=== PATIENT | male | born 1975 | race Caucasian/White ===

== ENCOUNTER 2024-10-01 03:49 | Inpatient (IN) | payer BC, OTHER ==
[~2024-10-01] VITALS: Ht 177.8 cm; Wt 92.0 kg
--- NOTE | 2024-10-01 03:53 | ECG ---
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
[2024-10-01] MEDS: ASPirin 81 mg TAB PO ONE (04:10)
--- NOTE | 2024-10-01 04:11 | ED.PDOC ---
History of Present Illness HPI Comments 49 y/o M, with a Hx of CAD, 4xCABG, cholecystectomy, DM, and HTN, presents with c/o non-radiating, left-sided chest pain, shortness of breath, non-productive cough, nausea, and vomiting since 2330, yesterday night. Patient endorses on sudden and unprovoked onset of symptoms that awoke him from his sleep, last night. Patient states on pain being burning and tight in quality. Patient states on no additional relevant or pertinent Hx along with recent stress, injuries, sick contact, travel, spoiled food, or substance use/exposure. Patient denies having any palpitations, hematemesis, fever, chills, or other associated symptoms or modifiers at this time. Chief Complaint: Chest Pain Time Seen by MD: 04:00 Reviewed Notes: Nurses Notes, Medications, Allergies Allergies: Coded Allergies: NO KNOWN ALLERGIES (Unverified , 10/01/24) Information Source: Patient Mode of Arrival: Ambulatory Severity: Moderate Timing: Hours Duration: Since onset Prehospital treatment: None Past Medical History PAST MEDICAL HISTORY: CAD, DM, HTN Surgical History: CABG (4x), Cholecystectomy Family History Family History: Reviewed,noncontributory to illness, No family hx of DM, No family hx of Heart adriana, No family hx of HTN, No family hx ofKidney adriana, No family hx of Liver adriana, No family hx of Lung adriana, Family hx of Cancer Social History Smoker: Non-Smoker Alcohol: Denies ETOH Use Drugs: Denies Drug Use Lives In: Home Constitutional: denies: chills, diaphoresis, fatigue, fever, malaise, sweats, weakness, others EENTM: denies: blurred vision, double vision, ear bleeding, ear discharge, ear drainage, ear pain, ear ringing, eye pain, eye redness, hearing loss, mouth pain, mouth swelling, nasal discharge, nose bleeding, nose congestion, nose pain, photophobia, tearing, throat pain, throat swelling, voice changes, others Respiratory: reports: cough, shortness of breath; denies: hemoptysis, orthopnea, SOB at rest, SOB with excertion, stridor, wheezing, others Cardiovascular: reports: chest pain; denies: dizzy spells, diaphoresis, Dyspnea on exertion, edema, irregular heart beat, left arm pain, lightheadedness, palpitations, PND, syncope, others Gastrointestinal: reports: nausea, vomiting; denies: abdomen distended, abdominal pain, blood streaked bowels, constipated, diarrhea, dysphagia, difficulty swallowing, hematemesis, melena, poor appetite, poor fluid intake, rectal bleeding, rectal pain, others Genitourinary: denies: burning, dysuria, flank pain, frequency, hematuria, incontinence, penile discharge, penile sore, pain, testicle pain, testicle swelling, urgency, others Neurological: denies: dizziness, fainting, headache, left sided numbness, left sided weakness, numbness, paresthesia, pre-existing deficit, right sided numbness, right sided weakness, seizure, speech problems, tingling, tremors, weakness, others Musculoskeletal: denies: back pain, gout, joint pain, joint swelling, muscle pain, muscle stiffness, neck pain, others Integumetry: denies: bruises, change in color, change in hair/nails, dryness, laceration, lesions, lumps, rash, wounds, others Allergic/Immunocompromised: denies: Difficulty Healing, Frequent Infections, Hives, Itching, others Hematologic/Lymphatic: denies: anemia, blood clots, easy bleeding, easy bruising, swollen glands, others Endocrine: denies: excessive hunger, excessive sweating, excessive thirst, excessive urination, flushing, intolerance to cold, intolerance to heat, unexplained weight gain, unexplained weight loss, others Psychiatric: denies: anxiety, bipolar disorder, depression, hopeless, panic disorder, schizophrenia, sleepless, suicidal, others All Other Systems: Reviewed and Negative Physical Exam General Appearance: Moderate Distress HEENT: Normal ENT Inspection, Pharynx Normal, TMs Normal Neck: Full Range of Motion, Non-Tender, Normal, Normal Inspection Respiratory: Chest Non-Tender, Lungs Clear, No Accessory Muscle Use, No Respiratory Distress, Normal Breath Sounds Cardiovascular: No Edema, No JVD, No Murmur, No Gallop, Normal Peripheral Pulses, Regular Rate/Rhythm Breast Exam: Deferred Gastrointestinal: No Organomegaly, Non Tender, No Pulsatile Mass, Normal Bowel Sounds, Soft Genitalia: Deferred Pelvic: Deferred Rectal: Deferred Extremities: No calf tenderness, Normal capillary refill, Normal inspection, Normal range of motion, Non-tender, No pedal edema Musculoskeletal : Apperance: Normal 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 Was a procedure done?: No EKG EKG : Pulse Rate (adult): 115 [place]: Normal Cardiac Rhythm: ST Block: None Hypertrophy: LAE ST: Normal Differential Dx Considerations may include: MD, ACS, PE, anxiety, angina, costochondritis, pericarditis, gastritis, gastroenteritis, musculoskeletal pain X-Ray, Labs, Meds, VS Vital Signs Date Time Temp Pulse Resp B/P (MAP) Pulse Ox O2 Delivery O2 Flow Rate FiO2 10/01/24 04:47 91 10/01/24 04:31 115 192/132 10/01/24 04:11 115 10/01/24 04:00 97.5 115 20 192/132 (152) 98 10/01/24 03:52 115 Lab Test 10/01/24 04:53 10/01/24 03:52 Range/Units Troponin I High Sensitivity Pending 34 </=54 ng/L White Blood Count 14.1 H 4.4-10.8 10^3/uL Red Blood Count 5.60 4.5-5.90 10^6/uL Hemoglobin 17.1 13.5-17.5 g/dL Hematocrit 49.7 41.0-53.0 % Mean Corpuscular Volume 88.8 80.0-100.0 fL Mean Corpuscular Hemoglobin 30.5 28.0-32.0 pg Mean Corpuscular Hemoglobin Concent 34.4 32.0-36.0 g/dL Red Cell Distribution Width 14.7 H 11.8-14.3 % Platelet Count 231 140-450 10^3/uL Mean Platelet Volume 7.7 6.9-10.8 fL Neutrophils (%) (Auto) 86.3 H 37.0-80.0 % Lymphocytes (%) (Auto) 6.8 L 10.0-50.0 % Monocytes (%) (Auto) 6.7 0.0-12.0 % Eosinophils (%) (Auto) 0.1 0.0-7.0 % Basophils (%) (Auto) 0.1 0.0-2.0 % Neutrophils # (Auto) 12.2 H 1.6-8.6 10 ^3/uL Lymphocytes # (Auto) 1.0 0.4-5.4 10 ^3/uL Monocytes # (Auto) 0.9 0-1.3 10 ^3/uL Eosinophils # (Auto) 0 0-0.8 10 ^3/uL Basophils # (Auto) 0 0-0.2 10 ^3/uL Nucleated Red Blood Cells 0.0 % D-Dimer, Quantitative 0.44 0.0-0.49 mg/L FEU Sodium Level 136 136-145 mmol/L Potassium Level 4.2 3.5-5.1 mmol/L Chloride Level 99 98-107 mmol/L Carbon Dioxide Level 24 20-31 mmol/L Anion Gap 13 5-15 Blood Urea Nitrogen 16 9-23 mg/dL Creatinine 1.27 0.700-1.30 mg/dL Glomerular Filtration Rate Calc 69 >90 mL/min BUN/Creatinine Ratio 12.6 10.0-20.0 Serum Glucose 305 H 74-106 mg/dL Calcium Level 10.3 8.7-10.4 mg/dL Total Bilirubin 2.3 H 0.2-1.0 mg/dL Aspartate Amino Transferase (AST) 18 13-40 U/L Alanine Aminotransferase (ALT) 28 7-40 U/L Alkaline Phosphatase 142 H 46-116 U/L Total Protein 7.5 5.7-8.2 g/dL Albumin 4.7 3.2-4.8 g/dL Current Medications Medications (Trade) Dose Ordered Sig/Toshia Route Start Time Stop Time Status Last Admin Aspirin 162 mg ONCE ONCE PO 10/01/24 04:15 10/01/24 04:16 DC 10/01/24 04:10 Metoprolol Tartrate (Lopressor) 5 mg ONCE ONCE IV 10/01/24 04:15 10/01/24 04:16 DC 10/01/24 04:31 Ondansetron HCl (Zofran) 4 mg ONCE ONCE IV 10/01/24 04:30 10/01/24 04:31 DC 10/01/24 04:31 The chest x-ray shows mild congestion. The patient's CBC shows an elevated white blood cell count of 14.1 The rest of the CBC is within normal limits The patient's chemistry panel shows hyperglycemia at 305 The patient was given aspirin 162 mg by mouth The patient was also given Lopressor 5 mg IV push The patient was given Zofran 4 mg IV push for the nausea and vomiting The 1st troponin level came back at 34 The patient was being admitted with a diagnosis of acute coronary syndrome Images Reviewed?: Images reviewed and evaluated by me Time of 1ST Reevaluation: 04:30 Reevaluation 1ST: Unchanged Patient Education/Counseling: Diagnosis, Treatment, Prognosis Family Education/Counseling: No Family Present Departure 1 Departure Time of Disposition: 05:43 Impression: Primary Impression: Acute coronary syndrome Disposition: 09 ADMITTED INPATIENT Admit to: [facility] Condition: Fair Critical Care Note Critical Care Time?: Yes (30 min-critical care time only) Stability Stability form required: Yes Unstable for transfer: Telemetry monitoring (Telemetry monitoring required), ED Physician Assesment (Clinical assesment) Heart Score Heart Score: Heart Score Response (Comments) Value History Moderate Suspicious 1 EKG Normal 0 Age 45-64 1 Risk Factors >3 or Hx ASHD 2 Troponin Normal limit 0 Total 4 I personally scribed for JACK ZUÑIGA MD ([email or web address]) on 10/01/24 at 04:11. Electronically submitted by Damaso Camilo ([email or web address]). JACK ZUÑIGA MD Oct 01, 2024 04:11
[2024-10-01 04:18] LABS: Basophils # (auto) 0 10 ^3/uL (0-0.2); Basophils % (auto) 0.1 % (0.0-2.0); Eosinophils # (auto) 0 10 ^3/uL (0-0.8); Eosinophils % (auto) 0.1 % (0.0-7.0); Hematocrit 49.7 % (41.0-53.0); Hemoglobin 17.1 g/dL (13.5-17.5); Lymphocytes % (auto) 6.8 % (10.0-50.0); Mean Corpuscular Hemoglobin 30.5 pg (28.0-32.0); Mean Corpuscular Hgb Conc. 34.4 g/dL (32.0-36.0); Mean Corpuscular Volume 88.8 fL (80.0-100.0); Monocytes # (auto) 0.9 10 ^3/uL (0-1.3); Monocytes % (auto) 6.7 % (0.0-12.0); Neutrophils # (auto) 12.2 10 ^3/uL (1.6-8.6); Neutrophils % (auto) 86.3 % (37.0-80.0); Platelet Count (auto) 231 10^3/uL (140-450); Red Cell Distribution Width 14.7 % (11.8-14.3); White Blood Cell 14.1 10^3/uL (4.4-10.8)
[2024-10-01] MEDS: METOPROLOL TARTRATE 1MG/1ML-5ML VIAL IV ONE (04:31)
[2024-10-01] MEDS: ONDANSETRON HCL 4 MG/2 ML VIAL IV ONE (04:31)
[2024-10-01 04:35] LABS: Alanine Aminotransferase 28 U/L (7-40); Albumin 4.7 g/dL (3.2-4.8); Alkaline Phosphatase 142 U/L (46-116); Anion Gap 13 (5-15); Aspartate Aminotransferase 18 U/L (13-40); BUN/Creatinine Ratio 12.6 (10.0-20.0); Blood Urea Nitrogen 16 mg/dL (9-23); Calcium 10.3 mg/dL (8.7-10.4); Carbon Dioxide 24 mmol/L (20-31); Chloride 99 mmol/L (98-107); Glucose 305 mg/dL (74-106); Potassium 4.2 mmol/L (3.5-5.1); Sodium 136 mmol/L (136-145)
[2024-10-01 04:36] LABS: Bilirubin, Total 2.3 mg/dL (0.2-1.0); Total Protein 7.5 g/dL (5.7-8.2)
--- NOTE | 2024-10-01 05:21 | ECG ---
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
--- NOTE | 2024-10-01 05:38 | DVH ---
CHEST RADIOGRAPH Indication: CP Technique: Single frontal view of the chest was obtained COMPARISON: None FINDINGS: Lines and Tubes: Median sternotomy Lungs: Mild congestion Pleura: No effusion. No pneumothorax. Cardiomediastinal contours: Borderline cardiomegaly Bones: Unremarkable IMPRESSION: Mild congestion
[2024-10-01] MEDS ORDERED: NITROGLYCERIN 0.4 MG SL TAB SL PRN (06:45)
[2024-10-01] MEDS ORDERED: MORPHINE SULFATE INJ 2 MG/ml SYRG IV PRN (06:45)
[2024-10-01] MEDS ORDERED: DEXTROSE (50%) 50ML SYRG IV PRN (06:45)
--- NOTE | 2024-10-01 09:42 | DVHCONRES ---
Date Seen: Oct 01, 2024 Resident Creating Document: BUBBA WALLACE RESIDENT Referring Physician JAI Wiley Reason for Consultation Chest pain History of Present Illness 49-year-old man history of CAD status post CABG x4, cholecystectomy, diabetes mellitus type 2, hypertension who presents with nonradiating, left-sided chest pain. He notes associated symptoms of shortness of breath and nonproductive co ugh. He also notes nausea and vomiting since 01/29/2030 last night. He notes a sudden unprovoked onset of symptoms. They awoken from asleep. Reoccurred last night. He describes the chest pain as burning and tied in quality. He states due to nausea and vomiting on Sat, he was not able to hold down any medications. He denies any recent stress, injuries, sick contacts, travel history or substance exposure. No palpitations. No fever or chills. He follows with Cardiology in down the [place] and is looking to establish care in [facility]. Cardiology consultation is called for evaluation of chest pain. Review of systems: 14 point review of systems is negative unless otherwise noted above. Past medical history: CAD, diabetes mellitus type 2, hypertension Past surgical history: CAD status post CABG, cholecystectomy , CHF Medications: Entresto, Carvedilol, Metformin, Lasix Allergies: No known drug allergies. Family history: No family history of premature CAD. No family history of lung disease. Family history notable for lung cancer in mother who was smoker. Social history: Nonsmoker. No alcohol or illicit drug use. Lives at home. Allergies: Coded Allergies: NO KNOWN ALLERGIES (Unverified , 10/01/24) Current Medications Current Medications Medications (Trade) Dose Ordered Sig/Toshia Route PRN Reason Start Time Stop Time Status Last Admin Metoprolol Tartrate (Lopressor Tablet) 25 mg BID PO 10/01/24 06:45 Labetalol HCl (Labetalol HCl) 5 mg Q4HPRN PRN IV SBP>150 10/01/24 06:45 Aspirin 81 mg DAILY PO 10/01/24 10:00 Atorvastatin Calcium (Lipitor) 20 mg HS PO 10/01/24 22:00 Lisinopril (Zestril Tablet) 10 mg DAILY PO 10/01/24 10:00 Diagnostic Test (Pha) (Accu-Chek Comfort Curve T) 1 strip Q6HR 10/01/24 12:00 Insulin Human Regular (InsuLIN R) Q6HR SC 10/01/24 12:00 Dextrose 50 ml UD PRN IV Blood Sugar LESS THAN 60 10/01/24 06:45 Ondansetron HCl (Zofran) 4 mg Q4HP PRN IV NAUSEA / VOMITING 10/01/24 06:45 Enoxaparin Sodium (Lovenox) 40 mg DAILY SC 10/01/24 10:00 Acetaminophen (Tylenol Tablet) 650 mg Q6HP PRN PO PAIN SCALE 1-3 OR TEMP>100.4 10/01/24 06:45 Nitroglycerin (Ntrostat Sublingual) 0.4 mg Q5MINP PRN SL FOR CHEST PAIN 10/01/24 06:45 Morphine Sulfate 2 mg Q30M PRN IV FOR CHEST PAIN 10/01/24 06:45 Vital Signs Vital Signs Date Time Temp Pulse Resp B/P (MAP) Pulse Ox O2 Delivery O2 Flow Rate FiO2 10/01/24 07:10 102 10/01/24 04:31 192/132 10/01/24 04:00 97.5 20 98 Physical Exam Gen.: Patient lying in bed in no apparent distress. He is breathing comfortably on room air. Head: Normocephalic, atraumatic Eyes: EOMI/PERRLA. Ears: Normal hearing. Normal anatomy. Neck/trachea: Trachea midline, supple. Nose: Normal external anatomy. Mouth: Moist mucous membranes. Chest: Fair air entry bilaterally. No wheezing or rhonchi. Cardio vascular: Positive S1, positive S2. Regular rate and rhythm. Abdomen: Positive bowel sounds in all 4 quadrants. Soft, non-tender, non- distended. : Deferred. Rectal: Deferred Skin: Warm, dry. Extremities: 2+ radial pulses bilaterally. No lower extremity edema. Neuro: Awake, alert, oriented x3. No gross motor or sensory deficits. Cranial nerves II through XII intact. Gait not assessed. Labs/Diagnostic Data Labs Test 10/01/24 07:29 10/01/24 03:52 Range/Units Troponin I High Sensitivity 34 </=54 ng/L White Blood Count 14.1 H 4.4-10.8 10^3/uL Red Blood Count 5.60 4.5-5.90 10^6/uL Hemoglobin 17.1 13.5-17.5 g/dL Hematocrit 49.7 41.0-53.0 % Mean Corpuscular Volume 88.8 80.0-100.0 fL Mean Corpuscular Hemoglobin 30.5 28.0-32.0 pg Mean Corpuscular Hemoglobin Concent 34.4 32.0-36.0 g/dL Red Cell Distribution Width 14.7 H 11.8-14.3 % Platelet Count 231 140-450 10^3/uL Mean Platelet Volume 7.7 6.9-10.8 fL Neutrophils (%) (Auto) 86.3 H 37.0-80.0 % Lymphocytes (%) (Auto) 6.8 L 10.0-50.0 % Monocytes (%) (Auto) 6.7 0.0-12.0 % Eosinophils (%) (Auto) 0.1 0.0-7.0 % Basophils (%) (Auto) 0.1 0.0-2.0 % Neutrophils # (Auto) 12.2 H 1.6-8.6 10 ^3/uL Lymphocytes # (Auto) 1.0 0.4-5.4 10 ^3/uL Monocytes # (Auto) 0.9 0-1.3 10 ^3/uL Eosinophils # (Auto) 0 0-0.8 10 ^3/uL Basophils # (Auto) 0 0-0.2 10 ^3/uL Nucleated Red Blood Cells 0.0 % D-Dimer, Quantitative 0.44 0.0-0.49 mg/L FEU Sodium Level 136 136-145 mmol/L Potassium Level 4.2 3.5-5.1 mmol/L Chloride Level 99 98-107 mmol/L Carbon Dioxide Level 24 20-31 mmol/L Anion Gap 13 5-15 Blood Urea Nitrogen 16 9-23 mg/dL Creatinine 1.27 0.700-1.30 mg/dL Glomerular Filtration Rate Calc 69 >90 mL/min BUN/Creatinine Ratio 12.6 10.0-20.0 Serum Glucose 305 H 74-106 mg/dL Calcium Level 10.3 8.7-10.4 mg/dL Total Bilirubin 2.3 H 0.2-1.0 mg/dL Aspartate Amino Transferase (AST) 18 13-40 U/L Alanine Aminotransferase (ALT) 28 7-40 U/L Alkaline Phosphatase 142 H 46-116 U/L Total Protein 7.5 5.7-8.2 g/dL Albumin 4.7 3.2-4.8 g/dL Assessment Impression: Rule out ACS Hypertensive urgency Leukocytosis DM Type II with Hyperglycemia Imaging/Diagnostic: Chest x-ray imaging report reviewed. Mild pulmonary vascular congestion. No pleural effusion or pneumothorax. Sternotomy changes. ECG: QTC prolongation. 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 D-dimer: 0.44, not elevated. Plan: On room air BP control, Received metoprolol 5 mg IV x1 Continue metoprolol 25 mg p.o. twice daily. Continue lisinopril 10 mg p.o. q.day. Labetalol 5 mg IV every 4 hours as needed for systolic blood pressure greater than 150 mmHg. Continue aspirin and statin. Resume home medications: Entresto, Carvedilol, and Lasix. Pain control Avoid over-sedation Anti-emetics Accu-Cheks, insulin sliding scale given hyperglycemia DVT prophylaxis -on Lovenox. Prognosis: Guarded given multiple comorbidities. Rest of plan per hospitalist and other consultants. Thank you JAI Wiley for allowing me to participate in this patient's care. Further recommendations will depend on patient's clinical course. Please do not hesitate to contact me if you have any questions or concerns. This medical document was created using an electronic medical record system with [employer] dictation system. Although this document has been carefully reviewed, there may still be some phonetic and typographical errors. These areas are purely typographical due to imperfections of the software programs, and do not reflect any compromise in the patient's medical care. 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
[2024-10-01] MEDS: LISINOPRIL 5 MG TAB PO SCH (12:20)
[2024-10-01] MEDS: ASPirin 81 mg TAB PO SCH (12:20)
[2024-10-01] MEDS: METOPROLOL TARTRATE 25 MG TAB PO SCH (12:21)
[2024-10-01] MEDS: ENOXAPARIN SOD 40 MG/0.4 ML SYRINGE SC SCH (12:22)
[2024-10-01] MEDS: ONDANSETRON HCL 4 MG/2 ML VIAL IV PRN (12:39)
[2024-10-01] MEDS: LABETALOL HCL 20 MG/4 ML VL IV PRN (12:47)
--- NOTE | 2024-10-01 15:01 | DVHPN2 ---
Reviewed: Care Plan, H&P, Labs, Medications, Previous Orders, Radiology Changes from previous H/P or p: No Changes Objective Vitals Vital Signs Date Time Temp Pulse Resp B/P (MAP) Pulse Ox O2 Delivery O2 Flow Rate FiO2 10/01/24 12:47 109 169/119 10/01/24 04:00 97.5 20 98 Medications Current Medications Medications Dose Ordered Sig/Toshia Route Start Time Stop Time Status Last Admin Dose Admin Metoprolol Tartrate 25 mg BID PO 10/01/24 06:45 10/01/24 12:21 25 MG Labetalol HCl 5 mg Q4HPRN PRN IV 10/01/24 06:45 10/01/24 12:47 5 MG Aspirin 81 mg DAILY PO 10/01/24 10:00 10/01/24 12:20 81 MG Atorvastatin Calcium 20 mg HS PO 10/01/24 22:00 Lisinopril 10 mg DAILY PO 10/01/24 10:00 10/01/24 12:20 10 MG Diagnostic Test (Pha) 1 strip Q6HR 10/01/24 12:00 Insulin Human Regular Q6HR SC 10/01/24 12:00 Dextrose 50 ml UD PRN IV 10/01/24 06:45 Ondansetron HCl 4 mg Q4HP PRN IV 10/01/24 06:45 10/01/24 12:39 4 MG Enoxaparin Sodium 40 mg DAILY SC 10/01/24 10:00 10/01/24 12:22 40 MG Acetaminophen 650 mg Q6HP PRN PO 10/01/24 06:45 Nitroglycerin 0.4 mg Q5MINP PRN SL 10/01/24 06:45 Morphine Sulfate 2 mg Q30M PRN IV 10/01/24 06:45 Laboratory Results Laboratory Tests 10/01/24 03:52 Chemistry Test 10/01/24 03:52 Albumin 4.7 g/dL (3.2-4.8) Calcium Level 10.3 mg/dL (8.7-10.4) Total Protein 7.5 g/dL (5.7-8.2) Coagulation Test 10/01/24 03:52 D-Dimer, Quantitative 0.44 mg/L FEU (0.0-0.49) LFT Test 10/01/24 03:52 Alanine Aminotransferase (ALT) 28 U/L (7-40) Alkaline Phosphatase 142 U/L (46-116) H Aspartate Amino Transferase (AST) 18 U/L (13-40) Total Bilirubin 2.3 mg/dL (0.2-1.0) H Labs and/or images reviewed: Labs reviewed by me, Image(s) reviewed by me Assessment/Plan Assessment/Plan Acute chest pain rule out coronary artery disease: Troponin negative x3, cardiology consult by Dr. Weiss appreciated, treatment per ACS protocol Accelerated hypertension 192/132 on metoprolol Mild elevated white blood cell count Type 2 diabetes : Insulin sliding scale Hypercholesterolemia: Lipitor Coronary artery disease status post CABG D-dimer normal Chest x-ray negative Time spent 55 minutes Condition guarded Advanced care planning time 20 mts Plan discussed with: Patient Date of Service: Oct 01, 2024 Billing Provider: YNES ALLEN MD Common Visit Codes: [id number] INP/OBS CARE(HIGH) Secondary Visit Codes: [id number] CARE PLAN 30 MINUTES YNES ALLEN MD Oct 01, 2024 15:01
[2024-10-01] MEDS: MORPHINE SULFATE 4 MG/ML SYR/VIAL IV ONE (17:28)
[2024-10-01] MEDS: ACCU-CHEK COMFORT CURVE STRIP VI SCH (17:33)
[2024-10-01] MEDS: InsuLIN REG 1unit/0.01ml Soln (100units/ml) SC SCH (17:53)
--- NOTE | 2024-10-01 19:30 | ECG ---
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
[2024-10-01] MEDS: ATORVASTATIN 20 MG TAB PO SCH (22:16)
[2024-10-02] VITALS (9 sets, daily range): BP systolic 128–154; BP diastolic 90–107; PULSE 77–88; RESP 16–20; TEMP 97.2–98.2; O2SAT 94–98
--- NOTE | 2024-10-02 05:51 | DVHHP2 ---
History of Present Illness Reason for Visit: Chest pain History of Present Illness 49-year-old male presents for evaluation of chest pain. Patient endorses a one day history of left-sided chest pain that is nonradiating with associated nausea, vomiting and shortness for breath. He reports being awakened from his s leep with the symptoms. No other acute complaints reported. Past Medical History Hypertension, diabetes mellitus and CAD Past Surgical History Cholecystectomy and CABG Family History Noncontributory Smoke: No ALCOHOL: none Drugs: None Lives: with Family Review of Systems Review of Systems Review of systems are currently negative otherwise addressed in HPI. Allergies: Coded Allergies: NO KNOWN ALLERGIES (Unverified , 10/01/24) Medications Current Medications Medications Dose Ordered Sig/Toshia Route Start Time Stop Time Status Last Admin Dose Admin Metoprolol Tartrate 25 mg BID PO 10/01/24 06:45 10/01/24 22:17 25 MG Labetalol HCl 5 mg Q4HPRN PRN IV 10/01/24 06:45 10/01/24 12:47 5 MG Aspirin 81 mg DAILY PO 10/01/24 10:00 10/01/24 12:20 81 MG Atorvastatin Calcium 20 mg HS PO 10/01/24 22:00 10/01/24 22:16 20 MG Lisinopril 10 mg DAILY PO 10/01/24 10:00 10/01/24 12:20 10 MG Diagnostic Test (Pha) 1 strip Q6HR 10/01/24 12:00 10/02/24 05:23 1 STRIP Insulin Human Regular Q6HR SC 10/01/24 12:00 10/02/24 05:26 3 UNITS Dextrose 50 ml UD PRN IV 10/01/24 06:45 Ondansetron HCl 4 mg Q4HP PRN IV 10/01/24 06:45 10/01/24 17:54 4 MG Enoxaparin Sodium 40 mg DAILY SC 10/01/24 10:00 10/01/24 12:22 40 MG Acetaminophen 650 mg Q6HP PRN PO 10/01/24 06:45 Nitroglycerin 0.4 mg Q5MINP PRN SL 10/01/24 06:45 Morphine Sulfate 2 mg Q30M PRN IV 10/01/24 06:45 Exam Vital Signs Vital Signs Date Time Temp Pulse Resp B/P (MAP) Pulse Ox O2 Delivery O2 Flow Rate FiO2 10/02/24 05:00 98.0 77 20 130/90 (103) 98 98.0 10/02/24 00:21 Room Air* 0 21 Exam Gen: 49-year-old male in mild distress Skin: Warm, dry, normal color and texture, no rash. HEENT: Normocephalic atraumatic, mucous membranes moist and pink. Neck: Cervical and supraclavicular nodes normal without enlargement, trachea is midline, thyroid gland is normal without masses. Pulmonary: Clear to auscultation and percussion bilaterally. Cardiac: Regular rate and rhythm. No murmur Abdomen: Soft, nontender, nondistended, bowel sounds present all 4 quadrants, no guarding, no rigidity, no organomegaly. Extremities: No cyanosis, clubbing, no edema Neuro: Cranial nerves II through XII grossly intact, normal affect and speech, no focal motor deficits. Labs/Xrays ORDERING PHYSICIAN: JACK ZUÑIGA MD PROCEDURE(s): CXRP - CHEST PORTABLE REASON: CP ORDER NUMBER(s): [id number], ACCESSION NUMBER(s): [id number] CHEST RADIOGRAPH Indication: CP Technique: Single frontal view of the chest was obtained COMPARISON: None FINDINGS: Lines and Tubes: Median sternotomy Lungs: Mild congestion Pleura: No effusion. No pneumothorax. Cardiomediastinal contours: Borderline cardiomegaly Bones: Unremarkable IMPRESSION: Mild congestion Labs Test 10/02/24 00:23 10/01/24 07:29 10/01/24 03:52 Range/Units POC Glucose 236 H 70-106 mg/dl Troponin I High Sensitivity 34 </=54 ng/L White Blood Count 14.1 H 4.4-10.8 10^3/uL Red Blood Count 5.60 4.5-5.90 10^6/uL Hemoglobin 17.1 13.5-17.5 g/dL Hematocrit 49.7 41.0-53.0 % Mean Corpuscular Volume 88.8 80.0-100.0 fL Mean Corpuscular Hemoglobin 30.5 28.0-32.0 pg Mean Corpuscular Hemoglobin Concent 34.4 32.0-36.0 g/dL Red Cell Distribution Width 14.7 H 11.8-14.3 % Platelet Count 231 140-450 10^3/uL Mean Platelet Volume 7.7 6.9-10.8 fL Neutrophils (%) (Auto) 86.3 H 37.0-80.0 % Lymphocytes (%) (Auto) 6.8 L 10.0-50.0 % Monocytes (%) (Auto) 6.7 0.0-12.0 % Eosinophils (%) (Auto) 0.1 0.0-7.0 % Basophils (%) (Auto) 0.1 0.0-2.0 % Neutrophils # (Auto) 12.2 H 1.6-8.6 10 ^3/uL Lymphocytes # (Auto) 1.0 0.4-5.4 10 ^3/uL Monocytes # (Auto) 0.9 0-1.3 10 ^3/uL Eosinophils # (Auto) 0 0-0.8 10 ^3/uL Basophils # (Auto) 0 0-0.2 10 ^3/uL Nucleated Red Blood Cells 0.0 % D-Dimer, Quantitative 0.44 0.0-0.49 mg/L FEU Sodium Level 136 136-145 mmol/L Potassium Level 4.2 3.5-5.1 mmol/L Chloride Level 99 98-107 mmol/L Carbon Dioxide Level 24 20-31 mmol/L Anion Gap 13 5-15 Blood Urea Nitrogen 16 9-23 mg/dL Creatinine 1.27 0.700-1.30 mg/dL Glomerular Filtration Rate Calc 69 >90 mL/min BUN/Creatinine Ratio 12.6 10.0-20.0 Serum Glucose 305 H 74-106 mg/dL Calcium Level 10.3 8.7-10.4 mg/dL Total Bilirubin 2.3 H 0.2-1.0 mg/dL Aspartate Amino Transferase (AST) 18 13-40 U/L Alanine Aminotransferase (ALT) 28 7-40 U/L Alkaline Phosphatase 142 H 46-116 U/L Total Protein 7.5 5.7-8.2 g/dL Albumin 4.7 3.2-4.8 g/dL Assessment/Plan Assessment/Plan Assessment Chest pain rule out ACS Diabetes mellitus Accelerated hypertension Status post CABG Plan Admit the patient to telemetry to the hospitalist ACS protocol Resume home medications Continue treatment per orders. Plan discussed with: Patient My Orders Orders - ROMANOROSIO AGACNP Procedure Category Date Status Time Metoprolol Tartrate PHA 10/01/24 In Process Tablet (Lopressor Ta 06:45 Labetalol Hcl PHA 10/01/24 In Process (Labetalol Hcl) 06:45 Aspirin Tablet PHA 10/01/24 In Process 10:00 Atorvastatin (Lipitor) PHA 10/01/24 In Process 22:00 Lisinopril Tablet PHA 10/01/24 In Process (Zestril Tablet) 10:00 * Cardiology Consult CONS 10/01/24 Transmitted 06:40 Basic Metabolic Panel LAB 10/02/24 Logged 04:00 Glucose Blood PHA 10/01/24 In Process (Accu-Chek Comfort 12:00 Insulin R (Human) PHA 10/01/24 In Process (Insulin R) 12:00 Dextrose 50% Syringe PHA 10/01/24 In Process 06:45 Admit ADMIT 10/01/24 Transmitted 06:40 Ondansetron Hcl PHA 10/01/24 In Process (Zofran) 06:45 Enoxaparin Sodium PHA 10/01/24 In Process (Lovenox) 10:00 Complete Blood Count LAB 10/02/24 Logged 04:00 Cardiac DIET 10/01/24 Transmitted Diet-2gna,Lofat,Lochol Breakfast Echo 2d Mode Cardiac US 10/01/24 Logged DOP 06:40 Condition: Fair [facility] 10/01/24 In Process 06:40 Acetaminophen Tablet PHA 10/01/24 In Process (Tylenol Tablet) 06:45 Bedrest With Bathroom [facility] 10/01/24 In Process Privileg 06:40 Nitroglycerin PHA 10/01/24 In Process Sublingual (Ntrostat 06:45 Morphine Sulfate PHA 10/01/24 In Process Injection 06:45 Stat Ekg For Chest [facility] 10/01/24 In Process Pain 06:40 Notify Of Changes [facility] 10/01/24 In Process From Base 06:40 [employer] For [facility] 10/01/24 In Process 24 Hours 06:40 Emergency Dysrhythmia [facility] 10/01/24 In Process Protocol 06:40 Rhythm Strips Once [facility] 10/01/24 In Process Every Shift 06:40 Oxygen By Nasal RT 10/01/24 Transmitted Cannula 06:40 Hepatitis B Surface LAB 10/02/24 Logged Antigen 04:00 Hepatitis C Antibody LAB 10/02/24 Logged 04:00 * Dietary Consult CONS 10/02/24 Transmitted 01:11 Date of Service: Oct 01, 2024 Billing Provider: ROSIO ROMANO Common Visit Codes: [id number] INP/OBS CARE (HIGH) ROSIO ROMANO Oct 02, 2024 05:51
[2024-10-02 07:07] LABS: Basophils # (auto) 0 10 ^3/uL (0-0.2); Basophils % (auto) 0.2 % (0.0-2.0); Eosinophils # (auto) 0.1 10 ^3/uL (0-0.8); Eosinophils % (auto) 0.5 % (0.0-7.0); Hematocrit 43.6 % (41.0-53.0); Hemoglobin 15.3 g/dL (13.5-17.5); Lymphocytes # (auto) 1.1 10 ^3/uL (0.4-5.4); Lymphocytes % (auto) 9.2 % (10.0-50.0); Mean Corpuscular Hemoglobin 30.4 pg (28.0-32.0); Mean Corpuscular Hgb Conc. 35.2 g/dL (32.0-36.0); Mean Corpuscular Volume 86.4 fL (80.0-100.0); Monocytes # (auto) 1.1 10 ^3/uL (0-1.3); Monocytes % (auto) 8.7 % (0.0-12.0); Neutrophils # (auto) 10.2 10 ^3/uL (1.6-8.6); Neutrophils % (auto) 81.4 % (37.0-80.0); Nucleated Red Blood Cells % 0.3 %; Platelet Count (auto) 241 10^3/uL (140-450); Red Blood Cells 5.05 10^6/uL (4.5-5.90); Red Cell Distribution Width 14.8 % (11.8-14.3); White Blood Cell 12.5 10^3/uL (4.4-10.8)
[2024-10-02 07:24] LABS: Chloride 101 mmol/L (98-107); Potassium 3.9 mmol/L (3.5-5.1); Sodium 138 mmol/L (136-145)
[2024-10-02 07:25] LABS: Anion Gap 8 (5-15); Calcium 9.7 mg/dL (8.7-10.4); Carbon Dioxide 29 mmol/L (20-31)
[2024-10-02 07:30] LABS: BUN/Creatinine Ratio 22.6 (10.0-20.0)
[2024-10-02 07:32] LABS: Blood Urea Nitrogen 33 mg/dL (9-23); Glucose 147 mg/dL (74-106)
[2024-10-02 08:36] LABS: Hepatitis B Surface Antigen Negative (Negative)
--- NOTE | 2024-10-02 08:42 | DVHPN2 ---
Reviewed: Care Plan, H&P, Labs, Medications, Previous Orders, Radiology Changes from previous H/P or p: No Changes Objective Vitals Vital Signs Date Time Temp Pulse Resp B/P (MAP) Pulse Ox O2 Delivery O2 Flow Rate FiO2 10/02/24 05:00 98.0 77 20 130/90 (103) 98 98.0 10/02/24 00:21 Room Air* 0 21 Intake/Output Intake and Output 10/02/24 07:00 Intake Total 240 ml Output Total 0 ml Balance 240 ml Intake Oral 240 ml Output Urine Total 0 ml Medications Current Medications Medications Dose Ordered Sig/Toshia Route Start Time Stop Time Status Last Admin Dose Admin Metoprolol Tartrate 25 mg BID PO 10/01/24 06:45 10/01/24 22:17 25 MG Labetalol HCl 5 mg Q4HPRN PRN IV 10/01/24 06:45 10/01/24 12:47 5 MG Aspirin 81 mg DAILY PO 10/01/24 10:00 10/01/24 12:20 81 MG Atorvastatin Calcium 20 mg HS PO 10/01/24 22:00 10/01/24 22:16 20 MG Lisinopril 10 mg DAILY PO 10/01/24 10:00 10/01/24 12:20 10 MG Diagnostic Test (Pha) 1 strip Q6HR 10/01/24 12:00 10/02/24 05:23 1 STRIP Insulin Human Regular Q6HR SC 10/01/24 12:00 10/02/24 05:26 3 UNITS Dextrose 50 ml UD PRN IV 10/01/24 06:45 Ondansetron HCl 4 mg Q4HP PRN IV 10/01/24 06:45 10/01/24 17:54 4 MG Enoxaparin Sodium 40 mg DAILY SC 10/01/24 10:00 10/01/24 12:22 40 MG Acetaminophen 650 mg Q6HP PRN PO 10/01/24 06:45 Nitroglycerin 0.4 mg Q5MINP PRN SL 10/01/24 06:45 Morphine Sulfate 2 mg Q30M PRN IV 10/01/24 06:45 Laboratory Results Laboratory Tests 10/02/24 06:43 Chemistry Test 10/02/24 06:43 Calcium Level 9.7 mg/dL (8.7-10.4) Labs and/or images reviewed: Labs reviewed by me, Image(s) reviewed by me Assessment/Plan Assessment/Plan Acute chest pain rule out coronary artery disease: Troponin negative x3, cardiology consult by Dr. Weiss appreciated, treatment per ACS protocol Accelerated hypertension 192/132 on metoprolol Mild elevated white blood cell count Type 2 diabetes : Insulin sliding scale Hypercholesterolemia: Lipitor Coronary artery disease status post CABG Epigastric abdominal pain: CT abdomen pelvis without contrast ordered, we will check lipase, denies use of alcohol or smoking, GI consult for Dr. Loera History of cholecystectomy in the past D-dimer normal Chest x-ray negative Time spent 55 minutes Condition guarded Advanced care planning time 20 mts Plan discussed with: Patient Date of Service: Oct 02, 2024 Billing Provider: YNES ALLEN MD Common Visit Codes: [id number] INP/OBS CARE(HIGH) YNES ALLEN MD Oct 02, 2024 08:42
[2024-10-02 08:57] LABS: Hepatitis C Antibody Negative (Negative)
[2024-10-02] MEDS: PANTOPRAZOLE 40 MG/10 ML VIAL INJ IV SCH (09:38)
[2024-10-02] MEDS: ACETAMINOPHEN 325 MG TAB PO PRN (09:40)
--- NOTE | 2024-10-02 09:41 | DVH ---
Procedure: CT CT AB PEL WO CON-NO ORAL OR IV 10/02/2024 08:52 AM Indication: Epigastric pain Comparison Study: None available at time of dictation. Technique: Axial images were obtained and reformatted in coronal and sagittal planes. All CT scans at this medical facility are performed using dose modulation techniques as appropriate t o a performed exam including the following: Automated exposure control was utilized; adjustment of th e MA and/or KV according to patient size; and use of iterative reconstruction technique. CT Dose: CTDI volume is 14.41 mGy. Dose-length product is 839.68 mGy*cm FINDINGS: Lower Chest: Base of the lungs are clear. Mild cardiomegaly. Coronary artery calcification/ stentin g. Median sternotomy wires noted. Hepatobiliary: Gallbladder is surgically absent. Spleen: Unremarkable. Pancreas: Unremarkable. Adrenal Glands: Unremarkable. tract: The kidneys are normal in size bilaterally without hydronephrosis or nephrolithiasis. The urinary bladder is unremarkable. GI tract: Mild circumferential distal esophageal wall thickening noted . The stomach is grossly lily l in appearance. No evidence of small bowel obstruction. Scattered colonic diverticula are noted with out evidence of diverticulitis. The appendix is normal. Lymphatics: No mesenteric, retroperitoneal or periportal lymphadenopathy. Vasculature: Aorta is normal in caliber. Scattered calcified plaques are noted. Pelvic Organs: Unremarkable Bones/soft tissues: No acute osseous abnormality. A small fat-containing umbilical hernia noted. Other: None. IMPRESSION: 1. Circumferential mural thickening of the distal esophageal wall suggestive of esophagitis. Recomme nd clinical correlation. 2. Diffuse colonic diverticulosis without diverticulitis.
[2024-10-02] MEDS: OPTISON 3ml Vial for INJ IV ONE (10:31)
--- NOTE | 2024-10-02 13:30 | DVHSR ---
APPROVED REPORT EXAM: Two-dimensional and M-mode echocardiogram with Doppler and color Doppler. Blood Pressure: 130/90 mmHg INDICATION Chest Pain RISK FACTORS Height: 5'10", Weight: 194 DIMENSIONS LVDd5.6 (3.8-5.7cm)LA (2D)4.5 (1.9-4.0cm)Aortic Root3.6 (2.0-3.7cm) LVDs5.0 (2.5-4.0cm)LA (MM) (1.9-4.0cm)Aortic Cusp Exc1.7 (1.5-2.0cm) EF (%) 20.0 (55-70%)Rt. Atrium4.1 (1.9-4.0cm)Asc. Aorta3.7 cm IVSd1.2 (0.7-1.1cm)RV (D)4.6 (1.8-2.4cm) PWd0.9 (0.7-1.1cm) Mitral Valve MitralMitral Stenosis E/A ratio0.02D MVAcm2 Aortic Valve Aortic ValveAortic Stenosis V10.41m/Thu Mean GR.2mmHg V20.73m/Thu Peak GR.2mmHg LVOT Diameter2.3 (1.8-2.4cm)Doppler AVA2.33cm2 Pulmonic Valve V20.56m/s Tricuspid Valve TR Velocity2.24m/s [id number] Conclusion Severely dilated left ventricle. Severely reduced left ventricular systolic function estimated eject ion fraction of 10-15%. In a global fashion. There is a grade diastolic dysfunction. Normal right ventricular size and dimension. Severely reduced right ventricular systolic function. Normal right ventricular systolic pressure at 24 mm of mercury. Normal biatrial size and dimension. Normal aortic valve structure and function. Normal mitral valve structure and function. Normal tricuspid valve function. The pulmonary valve is grossly normal. No pericardial effusion.
--- NOTE | 2024-10-02 21:20 | DVHINCON2 ---
Date of service: Oct 02, [address] Lanette Benjamin Reason for Consultation 49-year-old with a has coronary artery disease status post coronary artery bypass surgery diabetes and hypertension admitted with the complaints of left- sided chest pain shortness of breath nausea anorexia patient has been having problems with dysphagia unable to keep food much food down and food getting stuck. Patient had a CT scan which showed that there was evidence of esophageal thickening and possible narrowing of the distal esophagus and hence the reason for the GI consult Denies any weight loss denied any hematemesis or melena History of Present Illness History coronary artery disease diabetes hypertension Past Medical History Coronary artery bypass graft and cholecystectomy Past Surgical History Noncontributory Family History: Diabetes mellitus G8 MOTHER G8 FATHER FH: lung cancer G8 MOTHER FH: skin cancer PATERNAL GRANDFATHER Hypertension G8 MOTHER G8 FATHER Ischemic heart disease Family History Noncontributory Social History Denies smoking or drinking Allergies: Coded Allergies: NO KNOWN ALLERGIES (Unverified , 10/01/24) Home Meds Unable to Obtain Active Prescriptions or Reported Meds Current Medications Current Medications Medications (Trade) Dose Ordered Sig/Toshia Route PRN Reason Start Time Stop Time Status Last Admin Atorvastatin Calcium (Lipitor) 20 mg HS PO 10/01/24 22:00 10/01/24 22:16 Pantoprazole Sodium (Protonix) 40 mg BID IV 10/02/24 10:00 10/02/24 09:38 Review of Systems Noncontributory Vital Signs Vital Signs Date Time Temp Pulse Resp B/P (MAP) Pulse Ox O2 Delivery O2 Flow Rate FiO2 10/02/24 17:59 97.7 85 17 146/102 (117) 95 97.7 10/02/24 08:10 Room Air* 0 21 Physical Exam Originally built and nourished male in no acute distress vital signs stable HEENT examination no pallor no icterus neck was supple no lymphadenopathy no thyromegaly chest was bilaterally symmetrical lungs are clear cardiovascular unremarkable is soft not mild tenderness in the epigastric area no rigidity no guarding no masses bowel sounds are normal Extremities no edema no varicosities no Neurologically was grossly Labs/Diagnostic Data Labs Test 10/02/24 13:08 10/02/24 06:43 10/01/24 07:29 10/01/24 03:52 Range/Units POC Glucose 152 H 70-106 mg/dl White Blood Count 12.5 H 4.4-10.8 10^3/uL Red Blood Count 5.05 4.5-5.90 10^6/uL Hemoglobin 15.3 13.5-17.5 g/dL Hematocrit 43.6 # 41.0-53.0 % Mean Corpuscular Volume 86.4 80.0-100.0 fL Mean Corpuscular Hemoglobin 30.4 28.0-32.0 pg Mean Corpuscular Hemoglobin Concent 35.2 32.0-36.0 g/dL Red Cell Distribution Width 14.8 H 11.8-14.3 % Platelet Count 241 140-450 10^3/uL Mean Platelet Volume 7.6 6.9-10.8 fL Neutrophils (%) (Auto) 81.4 H 37.0-80.0 % Lymphocytes (%) (Auto) 9.2 L 10.0-50.0 % Monocytes (%) (Auto) 8.7 0.0-12.0 % Eosinophils (%) (Auto) 0.5 0.0-7.0 % Basophils (%) (Auto) 0.2 0.0-2.0 % Neutrophils # (Auto) 10.2 H 1.6-8.6 10 ^3/uL Lymphocytes # (Auto) 1.1 0.4-5.4 10 ^3/uL Monocytes # (Auto) 1.1 0-1.3 10 ^3/uL Eosinophils # (Auto) 0.1 0-0.8 10 ^3/uL Basophils # (Auto) 0 0-0.2 10 ^3/uL Nucleated Red Blood Cells 0.3 % Sodium Level 138 136-145 mmol/L Potassium Level 3.9 3.5-5.1 mmol/L Chloride Level 101 98-107 mmol/L Carbon Dioxide Level 29 20-31 mmol/L Anion Gap 8 5-15 Blood Urea Nitrogen 33 #H 9-23 mg/dL Creatinine 1.46 H 0.700-1.30 mg/dL Glomerular Filtration Rate Calc 59 >90 mL/min BUN/Creatinine Ratio 22.6 H 10.0-20.0 Serum Glucose 147 #H 74-106 mg/dL Calcium Level 9.7 8.7-10.4 mg/dL Lipase 65 H 12-53 U/L Hepatitis B Surface Antigen Negative Negative Hepatitis C Antibody Negative Negative Troponin I High Sensitivity 34 </=54 ng/L D-Dimer, Quantitative 0.44 0.0-0.49 mg/L FEU Total Bilirubin 2.3 H 0.2-1.0 mg/dL Aspartate Amino Transferase (AST) 18 13-40 U/L Alanine Aminotransferase (ALT) 28 7-40 U/L Alkaline Phosphatase 142 H 46-116 U/L Total Protein 7.5 5.7-8.2 g/dL Albumin 4.7 3.2-4.8 g/dL Assessment 49-year-old with history of coronary artery disease status post coronary artery bypass graft complaints with abdominal chest pain nausea anorexia patient had a CT scan which showed there was evidence of thickening of the distal esophagus patient has history of longstanding history of problems with swallowing Clinical impression possible GERD possible esophagitis possible stricture rule out other pathology including malignancy Plan/Recommendation We will recommend EGD evaluation and further workup and treatment depending upon the finding Procedure risks benefits alternatives explained to the patient and agreeable for the same Thank you Dr. Witt Plan discussed with: Patient YOBANY WITT MD Oct 02, 2024 21:20
[2024-10-03] VITALS (9 sets, daily range): BP systolic 106–166; BP diastolic 88–103; PULSE 70–85; RESP 12–19; TEMP 97.2–98.4; O2SAT 87–97
[2024-10-03] MEDS ORDERED: MIDAZOLAM HCL 5 MG/ML-1ML VIAL ONE (09:35)
[2024-10-03] MEDS ORDERED: diphenhdrAMINE HCL 50 MG/1 ML VL ONE (09:35)
[2024-10-03] MEDS ORDERED: fentaNYL CITRATE 100 MCG/2 ML VL ONE (09:36)
--- NOTE | 2024-10-03 09:37 | DVHPN2 ---
Reviewed: Care Plan, H&P, Labs, Medications, Previous Orders, Radiology Changes from previous H/P or p: No Changes Objective Vitals Vital Signs Date Time Temp Pulse Resp B/P (MAP) Pulse Ox O2 Delivery O2 Flow Rate FiO2 10/03/24 08:10 Room Air* 0 21 10/03/24 05:00 97.2 70 18 116/88 (97) 96 97.2 Intake/Output Intake and Output 10/03/24 07:00 Intake Total 1850 ml Balance 1850 ml Intake Oral 1850 ml # Voids 6 # Bowel Movements 2 Medications Current Medications Medications Dose Ordered Sig/Toshia Route Start Time Stop Time Status Last Admin Dose Admin Metoprolol Tartrate 25 mg BID PO 10/01/24 06:45 10/02/24 21:53 25 MG Labetalol HCl 5 mg Q4HPRN PRN IV 10/01/24 06:45 10/01/24 12:47 5 MG Aspirin 81 mg DAILY PO 10/01/24 10:00 10/02/24 09:40 81 MG Atorvastatin Calcium 20 mg HS PO 10/01/24 22:00 10/02/24 21:52 20 MG Lisinopril 10 mg DAILY PO 10/01/24 10:00 10/02/24 09:39 10 MG Diagnostic Test (Pha) 1 strip Q6HR 10/01/24 12:00 10/03/24 06:00 1 STRIP Insulin Human Regular Q6HR SC 10/01/24 12:00 10/02/24 12:00 2 UNITS Dextrose 50 ml UD PRN IV 10/01/24 06:45 Ondansetron HCl 4 mg Q4HP PRN IV 10/01/24 06:45 10/01/24 17:54 4 MG Enoxaparin Sodium 40 mg DAILY SC 10/01/24 10:00 10/02/24 09:39 40 MG Acetaminophen 650 mg Q6HP PRN PO 10/01/24 06:45 10/02/24 09:40 650 MG Nitroglycerin 0.4 mg Q5MINP PRN SL 10/01/24 06:45 Morphine Sulfate 2 mg Q30M PRN IV 10/01/24 06:45 Pantoprazole Sodium 40 mg BID IV 10/02/24 10:00 10/02/24 21:53 40 MG Laboratory Results Laboratory Tests 10/02/24 06:43 Labs and/or images reviewed: Labs reviewed by me, Image(s) reviewed by me Assessment/Plan Assessment/Plan Acute chest pain rule out coronary artery disease: Troponin negative x3, cardiology consult by Dr. Weiss appreciated, treatment per ACS protocol Accelerated hypertension 192/132 on metoprolol Mild elevated white blood cell count Type 2 diabetes : Insulin sliding scale Hypercholesterolemia: Lipitor Coronary artery disease status post CABG Epigastric abdominal pain: CT abdomen pelvis without contrast ordered, lipase slightly elevated 65, denies use of alcohol or smoking, GI consult for Dr. Loera planning for EGD History of cholecystectomy in the past D-dimer normal Chest x-ray negative Time spent 55 minutes Condition fair Plan discussed with: Patient Date of Service: Oct 03, 2024 Billing Provider: YNES ALLEN MD Common Visit Codes: [id number] INP/OBS CARE(HIGH) YNES ALLEN MD Oct 03, 2024 09:37
[2024-10-03] MEDS ORDERED: LIDOCAINE VISCOUS 2% 15ML UD ONE (13:27)
--- NOTE | 2024-10-03 14:48 | DVHOP2 ---
Operative Report DATE OF PROCEDURE: 10/03/24 INDICATIONS FOR THE PROCEDURE: Abdominal pain dysphagia PROCEDURE PERFORMED: 1. Esophagogastroduodenoscopy and biopsy POSTOPERATIVE DIAGNOSIS: Severe esophagitis with pseudomembranous patches and ulceration in the distal esophagus possibility of candidal esophagitis can not be excluded biopsies taken Mild antral gastritis INFORMED CONSENT: The risks and benefits and alternatives were explained to the patient and informed consent was obtained. PROCEDURE IN DETAIL: The patient was kept NPO after midnight. In the endoscopy room, he was given IV fentanyl and Versed, and titrated slowly to get him sedated. Olympus gastroscope was passed through the oropharynx into the stomach and the duodenum, and the findings were as follows. Esophagus: In the distal esophagus there were superficial ulcerations with pseudomembranous patches in the distal esophagus distal 3 cm consistent with possible candidal esophagitis No definite stricture or mass lesions seen Multiple biopsies were taken No varices no evidence of any extrinsic pressure effect or obstructiion Stomach: Fundus: Normal Body and antrum We will gastritis in the antrum biopsies taken to ensure there is no H pylori or other pathology Pylorus normal Duodenum unremarkable ENDOSCOPIC IMPRESSION: Severe esophagitis with the esophageal ulcerations superficial with pseudomembranous patches consistent with possible candidal infection Multiple biopsies taken. No definite stricture seen No bleeding lesions No mass lesions SUGGESTIONS: Await the biopsy results Received treatment with Diflucan and either Mycelex or Mycostatin suspension We will also recommend double-dose PPIs We will recommend repeat evaluation in after aggressive treatment for two months to heal the ulcers for ensuring there is no other pathology and no strictures and then if necessary dilatation Right now with the inflammation and ulcers with no clear-cut stricture seen , no clear indication for dilatation at this time which would be riskier also with the ulcers With warm regards MIRYAM Rogel MOOTHEDATH A MD Oct 03, 2024 14:48
[2024-10-03] MEDS: FLUCONAZOLE 100 MG TAB PO ONE (15:36)
[2024-10-03] MEDS: NYSTATIN (MOUTH-THROAT) 500,000 UNITS/5 ML SUSP MT SCH (17:03)
[2024-10-04] VITALS (8 sets, daily range): BP systolic 133–146; BP diastolic 87–104; PULSE 71–91; RESP 18–19; TEMP 97.4–98.2; O2SAT 92–96
[2024-10-04] MEDS: PANTOPRAZOLE 40 MG TAB PO SCH (05:12)
--- NOTE | 2024-10-04 09:00 | DVHPN2 ---
Reviewed: Care Plan, H&P, Labs, Medications, Previous Orders, Radiology Changes from previous H/P or p: No Changes Objective Vitals Vital Signs Date Time Temp Pulse Resp B/P (MAP) Pulse Ox O2 Delivery O2 Flow Rate FiO2 10/04/24 05:00 97.9 85 18 146/93 (110) 96 97.9 10/03/24 20:00 Room Air* 0 21 Intake/Output Intake and Output 10/04/24 07:00 Intake Total 540 ml Balance 540 ml Intake Oral 490 ml IV Total 50 ml # Voids 5 Medications Current Medications Medications Dose Ordered Sig/Toshia Route Start Time Stop Time Status Last Admin Dose Admin Metoprolol Tartrate 25 mg BID PO 10/01/24 06:45 10/03/24 21:10 25 MG Labetalol HCl 5 mg Q4HPRN PRN IV 10/01/24 06:45 10/03/24 17:20 5 MG Aspirin 81 mg DAILY PO 10/01/24 10:00 10/02/24 09:40 81 MG Atorvastatin Calcium 20 mg HS PO 10/01/24 22:00 10/03/24 21:09 20 MG Lisinopril 10 mg DAILY PO 10/01/24 10:00 10/03/24 09:35 10 MG Diagnostic Test (Pha) 1 strip Q6HR 10/01/24 12:00 10/04/24 05:13 1 STRIP Insulin Human Regular Q6HR SC 10/01/24 12:00 10/04/24 05:16 2 UNITS Dextrose 50 ml UD PRN IV 10/01/24 06:45 Ondansetron HCl 4 mg Q4HP PRN IV 10/01/24 06:45 10/01/24 17:54 4 MG Enoxaparin Sodium 40 mg DAILY SC 10/01/24 10:00 10/02/24 09:39 40 MG Acetaminophen 650 mg Q6HP PRN PO 10/01/24 06:45 10/02/24 09:40 650 MG Nitroglycerin 0.4 mg Q5MINP PRN SL 10/01/24 06:45 Morphine Sulfate 2 mg Q30M PRN IV 10/01/24 06:45 Fluconazole 100 mg DAILY PO 10/04/24 10:00 10/13/24 19:00 Nystatin 5 ml QID MT 10/03/24 18:00 10/04/24 05:12 5 ML Pantoprazole Sodium 40 mg DAILY@0600 PO 10/04/24 06:00 10/04/24 05:12 40 MG Laboratory Results Laboratory Tests 10/02/24 06:43 Labs and/or images reviewed: Labs reviewed by me, Image(s) reviewed by me Assessment/Plan Assessment/Plan Acute chest pain rule out coronary artery disease: Troponin negative x3, cardiology consult by Dr. Franco, EF 19 %, does not have AICD in place Acute on chronic severe systolic congestive heart failure Accelerated hypertension 192/132 on metoprolol Mild elevated white blood cell count Type 2 diabetes : Insulin sliding scale Hypercholesterolemia: Lipitor Coronary artery disease status post CABG three years ago at [facility] Epigastric abdominal pain: CT abdomen pelvis without contrast ordered, lipase slightly elevated 65, denies use of alcohol or smoking, EGD by Dr. Loera shows: Severe esophagitis with the esophageal ulcerations superficial with pseudomembranous patches consistent with possible candidal infection, Multiple biopsies taken. No definite stricture seen No bleeding lesions No mass lesions; started on nystatin and Diflucan History of cholecystectomy in the past D-dimer normal Chest x-ray negative Time spent 55 minutes Condition fair Plan discussed with: Patient Date of Service: Oct 04, 2024 Billing Provider: YNES ALLEN MD Common Visit Codes: [id number] INP/OBS CARE(HIGH) YNES ALLEN MD Oct 04, 2024 09:00
[2024-10-04] MEDS: FLUCONAZOLE 100 MG TAB PO SCH (09:08)
--- NOTE | 2024-10-04 18:20 | DVHPN2 ---
Progress Note - Dictate Date Seen: Oct 04, 2024 Has the PT tested + for MRSA If YES, has PT been informed?: No Medical Necessity Reason Pt with a Central, PICC or Fol: No Subjective This patient is extremely better after the Diflucan and Mycostatin treatment for candidiasis of the esophagus Tolerated diet well and no no chest pains or nausea or other symptoms now vital signs Vital Sign Date Time Temp Pulse Resp B/P (MAP) Pulse Ox O2 Delivery O2 Flow Rate FiO2 10/04/24 17:00 97.9 83 18 133/91 (105) 92 97.9 10/04/24 08:00 Room Air* 0 21 Total Intake and Output 10/03/24 10/03/24 10/04/24 15:00 23:00 07:00 Intake Total 50 ml 240 ml 250 ml Balance 50 ml 240 ml 250 ml medications Current Medications Medications Dose Ordered Sig/Toshia Route Start Time Stop Time Status Last Admin Dose Admin Metoprolol Tartrate 25 mg BID PO 10/01/24 06:45 10/04/24 09:10 25 MG Labetalol HCl 5 mg Q4HPRN PRN IV 10/01/24 06:45 10/03/24 17:20 5 MG Aspirin 81 mg DAILY PO 10/01/24 10:00 10/04/24 09:08 81 MG Atorvastatin Calcium 20 mg HS PO 10/01/24 22:00 10/03/24 21:09 20 MG Lisinopril 10 mg DAILY PO 10/01/24 10:00 10/04/24 09:08 10 MG Diagnostic Test (Pha) 1 strip Q6HR 10/01/24 12:00 10/04/24 12:00 1 STRIP Insulin Human Regular Q6HR SC 10/01/24 12:00 10/04/24 12:35 4 UNITS Dextrose 50 ml UD PRN IV 10/01/24 06:45 Ondansetron HCl 4 mg Q4HP PRN IV 10/01/24 06:45 10/01/24 17:54 4 MG Enoxaparin Sodium 40 mg DAILY SC 10/01/24 10:00 10/02/24 09:39 40 MG Acetaminophen 650 mg Q6HP PRN PO 10/01/24 06:45 10/02/24 09:40 650 MG Nitroglycerin 0.4 mg Q5MINP PRN SL 10/01/24 06:45 Morphine Sulfate 2 mg Q30M PRN IV 10/01/24 06:45 Fluconazole 100 mg DAILY PO 10/04/24 10:00 10/13/24 19:00 10/04/24 09:08 100 MG Nystatin 5 ml QID MT 10/03/24 18:00 10/04/24 12:34 5 ML Pantoprazole Sodium 40 mg DAILY@0600 PO 10/04/24 06:00 10/04/24 05:12 40 MG objective Abdomen soft no masses no tenderness laboratory and microbiology Laboratory Tests 10/02/24 06:43 Test 10/02/24 06:43 Range/Units Serum Glucose 147 #H 74-106 mg/dL Assessment/Plan 49-year-old with history of coronary artery disease status post coronary artery bypass graft complaints with abdominal chest pain nausea anorexia patient had a CT scan which showed there was evidence of thickening of the distal esophagus patient has history of longstanding history of problems with swallowing Clinical impression possible GERD possible esophagitis possible stricture rule out other pathology including malignancy Patient has endoscopically 20 daily esophagitis which has been treated with the Diflucan and Mycostatin and much better now Plans Recommend to increase the feeds Continue Diflucan and Mycostatin at least for 10 days We will recommend repeat evaluation of the esophagus in three months to ensure there is no stricture or other pathology also Thank you Dr. Loera Dietary Evaluation Review Comments: Continue current plan of care Expected Outcomes/Goals: F/U in 3-5 days Plan discussed with: Patient YOBANY LOERA MD Oct 04, 2024 18:20
--- NOTE | 2024-10-04 22:06 | DVHINCON2 ---
Date of service: Oct 04, 2024 Referring Physician Sourav Reason for Consultation Chest pain History of Present Illness This is a 49 year old male with a PMH of CAD, 4xCABG, cholecystectomy, DM, and HTN who presents to the ED with complaints of non-radiating, left-sided chest pain, shortness of breath, non-productive cough, nausea, and vomiting that started on 09/30. Patient reported sudden and unprovoked onset of symptoms that awoke him from his sleep, last night. Patient describes the chest pain as burning and tight in quality. Chest x-ray shows mild congestion. EKG showed tachycardia at 115. Troponin negative x3. Patient was admitted to the hospital. I am asked to consult on this patient. Family History: Diabetes mellitus G8 MOTHER G8 FATHER FH: lung cancer G8 MOTHER FH: skin cancer PATERNAL GRANDFATHER Hypertension G8 MOTHER G8 FATHER Ischemic heart disease Allergies: Coded Allergies: NO KNOWN ALLERGIES (Unverified , 10/01/24) Home Meds Unable to Obtain Active Prescriptions or Reported Meds Current Medications Current Medications Medications (Trade) Dose Ordered Sig/Toshia Route PRN Reason Start Time Stop Time Status Last Admin Fluconazole (Diflucan Tablet) 100 mg DAILY PO 10/04/24 10:00 10/13/24 19:00 10/04/24 09:08 Pantoprazole Sodium (Protonix Tablet) 40 mg DAILY@0600 PO 10/04/24 06:00 10/04/24 05:12 Review of Systems Constitutional: denies: chills, diaphoresis, fatigue, fever, malaise, sweats, weakness, others EENTM: denies: blurred vision, double vision, ear bleeding, ear discharge, ear drainage, ear pain, ear ringing, eye pain, eye redness, hearing loss, mouth pain, mouth swelling, nasal discharge, nose bleeding, nose congestion, nose pain, photophobia, tearing, throat pain, throat swelling, voice changes, others Respiratory: reports: cough, shortness of breath; denies: hemoptysis, orthopnea, SOB at rest, SOB with excertion, stridor, wheezing, others Cardiovascular: reports: chest pain; denies: dizzy spells, diaphoresis, Dyspnea on exertion, edema, irregular heart beat, left arm pain, lightheadedness, palpitations, PND, syncope, others Gastrointestinal: reports: nausea, vomiting; denies: abdomen distended, abdominal pain, blood streaked bowels, constipated, diarrhea, dysphagia, difficulty swallowing, hematemesis, melena, poor appetite, poor fluid intake, rectal bleeding, rectal pain, others Genitourinary: denies: burning, dysuria, flank pain, frequency, hematuria, incontinence, penile discharge, penile sore, pain, testicle pain, testicle swelling, urgency, others Neurological: denies: dizziness, fainting, headache, left sided numbness, left sided weakness, numbness, paresthesia, pre-existing deficit, right sided numbness, right sided weakness, seizure, speech problems, tingling, tremors, weakness, others Musculoskeletal: denies: back pain, gout, joint pain, joint swelling, muscle pain, muscle stiffness, neck pain, others Integumetry: denies: bruises, change in color, change in hair/nails, dryness, laceration, lesions, lumps, rash, wounds, others Allergic/Immunocompromised: denies: Difficulty Healing, Frequent Infections, Hives, Itching, others Hematologic/Lymphatic: denies: anemia, blood clots, easy bleeding, easy bruising, swollen glands, others Endocrine: denies: excessive hunger, excessive sweating, excessive thirst, excessive urination, flushing, intolerance to cold, intolerance to heat, unexplained weight gain, unexplained weight loss, others Psychiatric: denies: anxiety, bipolar disorder, depression, hopeless, panic disorder, schizophrenia, sleepless, suicidal, others All Other Systems: Reviewed and Negative Vital Signs Vital Signs Date Time Temp Pulse Resp B/P (MAP) Pulse Ox O2 Delivery O2 Flow Rate FiO2 10/04/24 17:00 97.9 83 18 133/91 (105) 92 97.9 10/04/24 08:00 Room Air* 0 21 Physical Exam GENERAL: Awake, alert, oriented. LUNGS: Clear. CARDIOVASCULAR: Heart sounds are good. ABDOMEN: Soft. Labs/Diagnostic Data Labs Test 10/04/24 18:13 10/02/24 06:43 10/01/24 07:29 10/01/24 03:52 Range/Units POC Glucose 147 H 70-106 mg/dl White Blood Count 12.5 H 4.4-10.8 10^3/uL Red Blood Count 5.05 4.5-5.90 10^6/uL Hemoglobin 15.3 13.5-17.5 g/dL Hematocrit 43.6 # 41.0-53.0 % Mean Corpuscular Volume 86.4 80.0-100.0 fL Mean Corpuscular Hemoglobin 30.4 28.0-32.0 pg Mean Corpuscular Hemoglobin Concent 35.2 32.0-36.0 g/dL Red Cell Distribution Width 14.8 H 11.8-14.3 % Platelet Count 241 140-450 10^3/uL Mean Platelet Volume 7.6 6.9-10.8 fL Neutrophils (%) (Auto) 81.4 H 37.0-80.0 % Lymphocytes (%) (Auto) 9.2 L 10.0-50.0 % Monocytes (%) (Auto) 8.7 0.0-12.0 % Eosinophils (%) (Auto) 0.5 0.0-7.0 % Basophils (%) (Auto) 0.2 0.0-2.0 % Neutrophils # (Auto) 10.2 H 1.6-8.6 10 ^3/uL Lymphocytes # (Auto) 1.1 0.4-5.4 10 ^3/uL Monocytes # (Auto) 1.1 0-1.3 10 ^3/uL Eosinophils # (Auto) 0.1 0-0.8 10 ^3/uL Basophils # (Auto) 0 0-0.2 10 ^3/uL Nucleated Red Blood Cells 0.3 % Sodium Level 138 136-145 mmol/L Potassium Level 3.9 3.5-5.1 mmol/L Chloride Level 101 98-107 mmol/L Carbon Dioxide Level 29 20-31 mmol/L Anion Gap 8 5-15 Blood Urea Nitrogen 33 #H 9-23 mg/dL Creatinine 1.46 H 0.700-1.30 mg/dL Glomerular Filtration Rate Calc 59 >90 mL/min BUN/Creatinine Ratio 22.6 H 10.0-20.0 Serum Glucose 147 #H 74-106 mg/dL Calcium Level 9.7 8.7-10.4 mg/dL Lipase 65 H 12-53 U/L Hepatitis B Surface Antigen Negative Negative Hepatitis C Antibody Negative Negative Troponin I High Sensitivity 34 </=54 ng/L D-Dimer, Quantitative 0.44 0.0-0.49 mg/L FEU Total Bilirubin 2.3 H 0.2-1.0 mg/dL Aspartate Amino Transferase (AST) 18 13-40 U/L Alanine Aminotransferase (ALT) 28 7-40 U/L Alkaline Phosphatase 142 H 46-116 U/L Total Protein 7.5 5.7-8.2 g/dL Albumin 4.7 3.2-4.8 g/dL Assessment Acute chest pain. Acute on chronic severe systolic congestive heart failure. Accelerated hypertension 192/132 on metoprolol. Mild elevated white blood cell count. Type 2 diabetes. Hypercholesterolemia. Coronary artery disease status post CABG three years ago at [facility]. Epigastric abdominal pain. Plan/Recommendation I agree with your ongoing assessment and care of plan. Echocardiogram. Aspirin, Lipitor, Metoprolol. DVT prophylactics. Lisinopril. Additional plan as per the hospital course. A total of 45 minutes was spent reviewing the patient record, examining the patient, making a diagnostic and therapeutic plan, discussing this plan with medical personnel, following up on diagnostic studies and following the patient for clinical stability excluding any and all procedures. At least 50% of this time was spent in direct, [id number] contact. Plan discussed with: Patient ROSA MARIA PEÑA MD Oct 04, 2024 20:54
[2024-10-05 01:00] VITALS: BP 132/91; PULSE 86; RESP 18; TEMP 98; O2SAT 95
[2024-10-05 05:00] VITALS: BP 122/86; PULSE 92; RESP 19; TEMP 98; O2SAT 96
[2024-10-05 07:45] VITALS: PULSE 92
--- NOTE | 2024-10-05 08:46 | DVHPN2 ---
Reviewed: Care Plan, H&P, Labs, Medications, Previous Orders, Radiology Changes from previous H/P or p: No Changes Objective Vitals Vital Signs Date Time Temp Pulse Resp B/P (MAP) Pulse Ox O2 Delivery O2 Flow Rate FiO2 10/05/24 05:00 98.0 92 19 122/86 (98) 96 98.0 10/04/24 20:00 Room Air* 0 21 Intake/Output Intake and Output 10/05/24 07:00 Intake Total 1514 ml Balance 1514 ml Intake Oral 1514 ml # Voids 5 # Bowel Movements 1 Medications Current Medications Medications Dose Ordered Sig/Toshia Route Start Time Stop Time Status Last Admin Dose Admin Metoprolol Tartrate 25 mg BID PO 10/01/24 06:45 10/04/24 21:36 25 MG Labetalol HCl 5 mg Q4HPRN PRN IV 10/01/24 06:45 10/03/24 17:20 5 MG Aspirin 81 mg DAILY PO 10/01/24 10:00 10/04/24 09:08 81 MG Atorvastatin Calcium 20 mg HS PO 10/01/24 22:00 10/04/24 21:36 20 MG Lisinopril 10 mg DAILY PO 10/01/24 10:00 10/04/24 09:08 10 MG Diagnostic Test (Pha) 1 strip Q6HR 10/01/24 12:00 10/05/24 05:48 1 STRIP Insulin Human Regular Q6HR SC 10/01/24 12:00 10/05/24 05:53 3 UNITS Dextrose 50 ml UD PRN IV 10/01/24 06:45 Ondansetron HCl 4 mg Q4HP PRN IV 10/01/24 06:45 10/01/24 17:54 4 MG Enoxaparin Sodium 40 mg DAILY SC 10/01/24 10:00 10/02/24 09:39 40 MG Acetaminophen 650 mg Q6HP PRN PO 10/01/24 06:45 10/02/24 09:40 650 MG Nitroglycerin 0.4 mg Q5MINP PRN SL 10/01/24 06:45 Morphine Sulfate 2 mg Q30M PRN IV 10/01/24 06:45 Fluconazole 100 mg DAILY PO 10/04/24 10:00 10/13/24 19:00 10/04/24 09:08 100 MG Nystatin 5 ml QID MT 10/03/24 18:00 10/05/24 05:51 5 ML Pantoprazole Sodium 40 mg DAILY@0600 PO 10/04/24 06:00 10/05/24 05:51 40 MG Laboratory Results Laboratory Tests 10/02/24 06:43 Labs and/or images reviewed: Labs reviewed by me, Image(s) reviewed by me Assessment/Plan Assessment/Plan Acute chest pain rule out coronary artery disease: Troponin negative x3, cardiology consult by Dr. Franco, EF 19 %, does not have AICD in place Acute on chronic severe systolic congestive heart failure Accelerated hypertension 192/132 on metoprolol Mild elevated white blood cell count Type 2 diabetes : Insulin sliding scale Hypercholesterolemia: Lipitor Coronary artery disease status post CABG three years ago at [facility] Epigastric abdominal pain: CT abdomen pelvis without contrast ordered, lipase slightly elevated 65, denies use of alcohol or smoking, EGD by Dr. Loera shows: Severe esophagitis with the esophageal ulcerations superficial with pseudomembranous patches consistent with possible candidal infection, Multiple biopsies taken. No definite stricture seen No bleeding lesions No mass lesions; started on nystatin and Diflucan History of cholecystectomy in the past D-dimer normal Chest x-ray negative Time spent 55 minutes Patient wants to go home Plan discussed with: Patient My Orders Orders - YNES ALLEN MD Procedure Category Date Status Time * Cardiology Consult CONS 10/04/24 Transmitted 08:55 Date of Service: Oct 05, 2024 Billing Provider: YNES ALLEN MD Common Visit Codes: [id number] INP/OBS CARE(HIGH) YNES ALLEN MD Oct 05, 2024 08:46
[2024-10-05 09:02] VITALS: BP 152/98; PULSE 96; RESP 17; TEMP 98.1; O2SAT 95
[2024-10-05] MEDS ORDERED: ATOR20TA PO (09:11)
[2024-10-05] MEDS ORDERED: METO25TA5 PO (09:11)
[2024-10-05] MEDS ORDERED: NYS5LQ MT (09:11)
[2024-10-05] MEDS ORDERED: LISI20TA56 PO (09:11)
[2024-10-05] MEDS ORDERED: FLUC200T PO (09:11)
[2024-10-05] MEDS ORDERED: ASPI-628 PO (09:11)
--- NOTE | 2024-10-05 09:14 | DVHDS2 ---
Discharge Summary Date of Admission Oct 01, 2024 at 06:44 Date of Discharge: Oct 05, 2024 Admitting Diagnosis Chest pain and difficulty swallowing Wounds: EGD Labs/Diagnostic Data: Laboratory Results Test 10/05/24 05:46 10/02/24 06:43 10/01/24 07:29 10/01/24 03:52 POC Glucose 169 mg/dl (70-106) White Blood Count 12.5 10^3/uL (4.4-10.8) Red Blood Count 5.05 10^6/uL (4.5-5.90) Hemoglobin 15.3 g/dL (13.5-17.5) Hematocrit 43.6 % (41.0-53.0) Mean Corpuscular Volume 86.4 fL (80.0-100.0) Mean Corpuscular Hemoglobin 30.4 pg (28.0-32.0) Mean Corpuscular Hemoglobin Concent 35.2 g/dL (32.0-36.0) Red Cell Distribution Width 14.8 % (11.8-14.3) Platelet Count 241 10^3/uL (140-450) Mean Platelet Volume 7.6 fL (6.9-10.8) Neutrophils (%) (Auto) 81.4 % (37.0-80.0) Lymphocytes (%) (Auto) 9.2 % (10.0-50.0) Monocytes (%) (Auto) 8.7 % (0.0-12.0) Eosinophils (%) (Auto) 0.5 % (0.0-7.0) Basophils (%) (Auto) 0.2 % (0.0-2.0) Neutrophils # (Auto) 10.2 10 ^3/uL (1.6-8.6) Lymphocytes # (Auto) 1.1 10 ^3/uL (0.4-5.4) Monocytes # (Auto) 1.1 10 ^3/uL (0-1.3) Eosinophils # (Auto) 0.1 10 ^3/uL (0-0.8) Basophils # (Auto) 0 10 ^3/uL (0-0.2) Nucleated Red Blood Cells 0.3 % Sodium Level 138 mmol/L (136-145) Potassium Level 3.9 mmol/L (3.5-5.1) Chloride Level 101 mmol/L (98-107) Carbon Dioxide Level 29 mmol/L (20-31) Anion Gap 8 (5-15) Blood Urea Nitrogen 33 mg/dL (9-23) Creatinine 1.46 mg/dL (0.700-1.30) Glomerular Filtration Rate Calc 59 mL/min (>90) BUN/Creatinine Ratio 22.6 (10.0-20.0) Serum Glucose 147 mg/dL (74-106) Calcium Level 9.7 mg/dL (8.7-10.4) Lipase 65 U/L (12-53) Hepatitis B Surface Antigen Negative (Negative) Hepatitis C Antibody Negative (Negative) Troponin I High Sensitivity 34 ng/L (</=54) D-Dimer, Quantitative 0.44 mg/L FEU (0.0-0.49) Total Bilirubin 2.3 mg/dL (0.2-1.0) Aspartate Amino Transferase (AST) 18 U/L (13-40) Alanine Aminotransferase (ALT) 28 U/L (7-40) Alkaline Phosphatase 142 U/L (46-116) Total Protein 7.5 g/dL (5.7-8.2) Albumin 4.7 g/dL (3.2-4.8) Other Laboratory Tests 10/02/24 06:43 Brief Hx & Hospital Course: 49-year-old male with a history of diabetes hypercholesterolemia coronary artery disease status post CABG three years ago to [facility] came in with a epigastric abdominal pain and chest pain troponin negative x3. Seen by sonar subsystem equipment operator Dr. Franco ejection fraction 19 percent. Blood pressure was elevated 192/132 placed on metoprolol and controlled. Insulin sliding scale for type 2 diabetes and Lipitor for the cholesterol EGD by Dr. Loera showed severe esophagitis with esophageal ulceration superficial with a pseudomembranous patches consistent with a possible candidal infection multiple biopsies were taken. Placed on nystatin and Diflucan advised to continue for 10 more days D- dimer was normal chest x-ray negative. The patient feels better and wants to go home. Discharged home. Medications transmitted to the pharmacy. He will follow up with the GI and Cardiology Consults/Reason for consult Cardiology Dr. Church GI Dr. Loera Operations or Procedures Echocardiogram EGD Condition at Discharge: Fair Final Diagnosis/Problems List Acute chest pain rule out coronary artery disease: Troponin negative x3, cardiology consult by Dr. Franco, EF 19 %, does not have AICD in place Acute on chronic severe systolic congestive heart failure Accelerated hypertension 192/132 on metoprolol Mild elevated white blood cell count Type 2 diabetes : Insulin sliding scale Hypercholesterolemia: Lipitor Coronary artery disease status post CABG three years ago at [facility] Epigastric abdominal pain: CT abdomen pelvis without contrast ordered, lipase slightly elevated 65, denies use of alcohol or smoking, EGD by Dr. Loera shows: Severe esophagitis with the esophageal ulcerations superficial with pseudomembranous patches consistent with possible candidal infection, Multiple biopsies taken. No definite stricture seen No bleeding lesions No mass lesions; started on nystatin and Diflucan History of cholecystectomy in the past D-dimer normal Chest x-ray negative Discharge Disposition: Home Discharge Instruct/Medications Diet: Cardiac 2g Na,low cholest Activity: Light activity Follow Up/Referral: Follow up with the sonar subsystem equipment operator Dr Weiss in two weeks Follow up with GI Dr. Loera in two weeks Follow up with your primary Dr Use medications as prescribed 39 (Time taken for discharge summary 39 minutes) Discharge Statement: "Patient was advised to return to the ER or call 911 if any headaches, dizziness, shortness of breath, chest pain, abdominal pain, bleeding, fevers, or worsening of medical condition. Patient was counseled about treatment plan, medications, possible side effects, patientverbalized understanding. All questions were answered to the best of my ability. This discharge took greater then 30 minutes in planning, reviewing documentation, counseling the patient, and discussing with other team members." ASSESSMENT ASSESSMENT Hospital Course Uneventful Assessment Acute chest pain rule out coronary artery disease: Troponin negative x3, cardiology consult by Dr. Franco, EF 19 %, does not have AICD in place Acute on chronic severe systolic congestive heart failure Accelerated hypertension 192/132 on metoprolol Mild elevated white blood cell count Type 2 diabetes : Insulin sliding scale Hypercholesterolemia: Lipitor Coronary artery disease status post CABG three years ago at [facility] Epigastric abdominal pain: CT abdomen pelvis without contrast ordered, lipase slightly elevated 65, denies use of alcohol or smoking, EGD by Dr. Loera shows: Severe esophagitis with the esophageal ulcerations superficial with pseudomembranous patches consistent with possible candidal infection, Multiple biopsies taken. No definite stricture seen No bleeding lesions No mass lesions; started on nystatin and Diflucan History of cholecystectomy in the past D-dimer normal Chest x-ray negative Date of Service: Oct 05, 2024 Billing Provider: YNES ALLEN MD Common Visit Codes: [id number] DISCH DAY >30min YNES ALLEN MD Oct 05, 2024 09:14
[2024-10-05 11:27] VITALS: BP 154/107; PULSE 94; RESP 19; TEMP 36.7; O2SAT 95
[2024-10-05 11:55] VITALS: BP 154/107; PULSE 94; RESP 19; TEMP 98.3; O2SAT 95
--- NOTE | 2024-10-05 19:47 | DVHPN2 ---
Progress Note - Dictate Date Seen: Oct 05, 2024 Has the PT tested + for MRSA If YES, has PT been informed?: No Medical Necessity Reason Pt with a Central, PICC or Fol: No Subjective Patient was seen and evaluated in follow up. Patient has no complaints. Chest pain has resolved. Echocardiogram revealed severely dilated left ventricle. Severely reduced left ventricular systolic function estimated ejection fraction of 10-15%. In a global fashion. There is a grade diastolic dysfunction. Patient is cardiac stable for discharge. vital signs Vital Sign Date Time Temp Pulse Resp B/P (MAP) Pulse Ox O2 Delivery O2 Flow Rate FiO2 10/05/24 11:55 98.3 94 19 154/107 (123) 95 98.3 10/05/24 07:45 Room Air* 0 21 Total Intake and Output 10/04/24 10/04/24 10/05/24 15:00 23:00 07:00 Intake Total 480 ml 1034 ml Balance 480 ml 1034 ml objective GENERAL: Awake, alert, oriented. LUNGS: Clear. CARDIOVASCULAR: Heart sounds are good. ABDOMEN: Soft. laboratory and microbiology Laboratory Tests 10/02/24 06:43 Test 10/02/24 06:43 Range/Units Serum Glucose 147 #H 74-106 mg/dL Problem List Acute chest pain. Acute on chronic severe systolic congestive heart failure. Accelerated hypertension 192/132 on metoprolol. Mild elevated white blood cell count. Type 2 diabetes. Hypercholesterolemia. Coronary artery disease status post CABG three years ago at [facility]. Epigastric abdominal pain. Assessment/Plan Continued all current supportive medical care. Aspirin, Lipitor, Metoprolol. DVT prophylactics. Lisinopril. Additional plan as per the hospital course. Dietary Evaluation Review Comments: Continue current plan of care Expected Outcomes/Goals: F/U in 3-5 days Plan discussed with: Patient ROSA MARIA PEÑA MD Oct 05, 2024 13:23
== END 2024-10-05 12:31 | disposition home or self-care (01) | DRG 291 ==
LOC: ER 03:49 → TELE-CENTR 06:44 → TELE 06:44 → TELE-CENTR 23:55
PROVIDERS: ADMIT Nurse Practitioner; ATTEND Nurse Practitioner
PROC: 0DB78ZX Excision of Stomach, Pylorus, Via Natural or Artificial Opening Endoscopic, Diagnostic (ICD-10-PCS; 2024-10-03)
PROC: 0DB38ZX Excision of Lower Esophagus, Via Natural or Artificial Opening Endoscopic, Diagnostic (ICD-10-PCS; principal; 2024-10-03 13:25)
DX: I11.0 Hypertensive heart disease with heart failure (principal); I50.23 Acute on chronic systolic (congestive) heart failure; B37.81 Candidal esophagitis; K22.10 Ulcer of esophagus without bleeding; I16.0 Hypertensive urgency; I25.10 Atherosclerotic heart disease of native coronary artery without angina pectoris; E78.00 Pure hypercholesterolemia, unspecified; E11.65 Type 2 diabetes mellitus with hyperglycemia; K29.70 Gastritis, unspecified, without bleeding; D72.829 Elevated white blood cell count, unspecified; Z90.49 Acquired absence of other specified parts of digestive tract; Z95.1 Presence of aortocoronary bypass graft; Z83.3 Family history of diabetes mellitus; Z82.49 Family history of ischemic heart disease and other diseases of the circulatory system; Z80.8 Family history of malignant neoplasm of other organs or systems; Z80.1 Family history of malignant neoplasm of trachea, bronchus and lung; Z79.899 Other long term (current) drug therapy; Z88.8 Allergy status to other drugs, medicaments and biological substances
CPT/HCPCS: 36415; 43239; 71045; 74176; 80048; 80053; 82962; 83690; 84484; 85025; 85379; 86803; 87340; 93005; 93306; 99291; G0378; J1815; J2250; J2405; J2470; Q9956